=== PATIENT | female | born 1950 | race Caucasian/White ===

== ENCOUNTER 2017-10-22 08:49 | Emergency (ER) | payer MEDICARE, OTHER ==
[2017-10-22 09:52] VITALS: BP 111/51
[2017-10-22] MEDS ORDERED: Ondansetron 4 MG/2 ML SDV IV ONE (09:54)
[2017-10-22] MEDS ORDERED: Sodium Chloride 0.9% 10 ML Syringe FLUSH PRN (09:54)
[2017-10-22] MEDS ORDERED: fentaNYL 100 MCG/2 ML SDV IVPUSH ONE (09:54)
--- NOTE | 2017-10-22 11:38 | EDM.PDOC ---
Scribed by Triny Mo 10/22/17 1138 for Zhang Tovar MD ED HPI GENERAL MEDICAL PROBLEM - General Chief Complaint: Upper Extremity Injury/Pain Stated Complaint: SHOULDER Time Seen by Provider: 10/22/17 09:35 Source of Information: Reports: Patient, RN, RN Notes Reviewed History Limitations: Reports: No Limitations - History of Present Illness INITIAL COMMENTS - FREE TEXT/NARRATIVE: Patient presents to ER with severe pain in left arm and shoulder. She let the dogs out and on the way back to the house she tripped on a hose and fell on her left arm and shoulder. She did not hit her head. No loss of consciousness. Onset: Today Duration: Getting Worse Location: Reports: Upper Extremity, Left Quality: Reports: Ache Severity: Severe Improves with: Reports: None Worsens with: Reports: None Associated Symptoms: Reports: No Other Symptoms Left Upper Arm Pain Score (Numeric/FACES): 8 - Related Data Allergies Allergy/AdvReac Type Severity Reaction Status Date / Time codeine Allergy Pain Verified 07/10/17 10:11 Home Meds: Home Meds Aspirin [Halfprin] 81 mg PO DAILY 09/07/16 [History] Escitalopram [Lexapro] 10 mg PO DAILY 09/07/16 [History] Levothyroxine 125 mcg PO DAILY 09/07/16 [History] Loratadine 10 mg PO DAILY PRN 09/07/16 [History] Simvastatin [Zocor] 20 mg PO DAILY 09/07/16 [History] Triamterene/Hydrochlorothiazid [Triamterene-HCTZ 37.5-25 MG] 1 tab PO DAILYBH [History] Losartan [Cozaar] 50 mg PO DAILY 10/19/16 [History] Past Medical History HEENT History: Reports: Otitis Media, Other (See Below) Other HEENT History: PT STATES HAD EAR BLEEDING LAST SUMMER Cardiovascular History: Reports: High Cholesterol, Hypertension Gastrointestinal History: Reports: None Genitourinary History: Reports: [employer] History: Reports: Musculoskeletal History: Reports: Arthritis, Back Pain, Chronic, Fibromyalgia, Other (See Below) Other Musculoskeletal History: TENDONITIS Psychiatric History: Reports: Anxiety, Depression Endocrine/Metabolic History: Reports: Osteopenia Dermatologic History: Reports: Other (See Below) Other Dermatologic History: "BREAKS OUT FROM SUN" - Infectious Disease History Infectious Disease History: Reports: Chicken Pox, Measles, Mumps, Shingles - Past Surgical History HEENT Surgical History: Reports: None Cardiovascular Surgical History: Reports: None GI Surgical History: Reports: Cholecystectomy Female Surgical History: Reports: Hysterectomy, Lithotripsy/ESWL, Other (See Below) Other Female Surgeries/Procedures: PT STATES HAD "BLADDER REPAIR" Endocrine Surgical History: Reports: None Musculoskeletal Surgical History: Reports: None Dermatological Surgical History: Reports: None Social & Family History - Family History Family Medical History: Noncontributory - Caffeine Use Caffeine Use: Reports: Coffee - Living Situation & Occupation Living situation: Reports: , with Spouse Occupation: Retired Review of Systems - Review of Systems Review Of Systems: ROS reveals no pertinent complaints other than HPI. ED EXAM, GENERAL - Physical Exam Exam: See Below Exam Limited By: No Limitations General Appearance: Alert, WD/WN, No Apparent Distress, Obese Eye Exam: Bilateral Eye: EOMI, Normal Inspection, PERRL Ears: Normal External Exam, Hearing Grossly Normal Nose: Normal Inspection, Normal Mucosa, No Blood Throat/Mouth: Normal Inspection, Normal Lips, Normal Oropharynx, Normal Voice, No Airway Compromise Head: Atraumatic, Normocephalic Neck: Normal Inspection, Supple, Non-Tender, Full Range of Motion Respiratory/Chest: No Respiratory Distress, Lungs Clear, Normal Breath Sounds, No Accessory Muscle Use, Chest Non-Tender Cardiovascular: Normal Peripheral Pulses, Regular Rate, Rhythm, No Edema GI/Abdominal: Normal Bowel Sounds, Soft, No Distention Back Exam: Normal Inspection Extremities: Normal Capillary Refill, Limited Range of Motion (left shoulder tender to palpation, and severely painful with any attempted ROM). No: Joint Swelling Neurological: Alert, Oriented, CN II-XII Intact, Normal Cognition, Normal Gait, No Motor/Sensory Deficits Psychiatric: Normal Mood Skin Exam: Warm, Dry, Intact, Normal Color, No Rash Course - Vital Signs Last Recorded V/S: Last Vital Signs Temp 37.1 C 10/22/17 09:39 Pulse 70 10/22/17 09:39 Resp 20 10/22/17 09:39 BP 111/51 L 10/22/17 09:39 Pulse Ox 100 10/22/17 09:39 - Orders/Labs/Meds Orders: Active Orders 24 hr Category Date Time Status Peripheral IV Care [RC] . DIRECTED Care 10/22/17 09:55 Active Head wo Cont [CT] Stat Exams 10/22/17 09:55 Taken Humerus Lt [CR] Stat Exams 10/22/17 09:56 Taken Shoulder Comp Rt [CR] Stat Exams 10/22/17 09:56 Taken Sodium Chloride 0.9% [Saline Flush] Med 10/22/17 09:54 Active 10 ml FLUSH ASDIRECTED PRN DME for Discharge [COMM] Routine Oth 10/22/17 11:10 Ordered Peripheral IV Insertion Adult [OM.PC] Stat Oth 10/22/17 09:54 Ordered Medication Orders Sodium Chloride (Saline Flush) 10 ml FLUSH ASDIRECTED PRN PRN Reason: Keep Vein Open Last Admin: 10/22/17 10:19 Dose: 10 ml Meds: Medications Generic Name Dose Route Start Last Admin Trade Name Freq PRN Reason Stop Dose Admin Sodium Chloride 10 ml 10/22/17 09:54 10/22/17 10:19 Saline Flush FLUSH 10 ml ASDIRECTED PRN Administration Keep Vein Open Discontinued Medications Generic Name Dose Route Start Last Admin Trade Name Freq PRN Reason Stop Dose Admin Fentanyl 50 mcg 10/22/17 09:54 10/22/17 10:19 Sublimaze IVPUSH 10/22/17 09:55 50 mcg ONETIME ONE Administration Ondansetron HCl 4 mg 10/22/17 09:54 10/22/17 10:17 Zofran IV 10/22/17 09:55 4 mg ONETIME ONE Administration - Radiology Interpretation Free Text/Narrative:: Left humerus and shoulder x-ray: proximal humeral neck fracture. See rad report. CT head: No acute intracranial hemorrhage. See rad report. - Re-Assessments/Exams Free Text/Narrative Re-Assessment/Exam: 10/22/17 11:37 Dr. Sanford was consulted via [facility] [facility]. He advises to place pt in a hanging sling and have her f/u in orthopedic clinic this week. Departure - Departure Time of Disposition: 11:28 Disposition: Home, Self-Care 01 Condition: Fair Clinical Impression: Closed fracture of neck of left humerus, Fall at home, Minor closed head injury , Abrasion of left knee - Discharge Information Instructions: Humerus Fracture Treated With Immobilization, How to Use a Sling Forms: ED Department Discharge Additional Instructions: RX: Hydrocodone/APAP 5mg/325mg. *DO NOT DRIVE WHILE UNDER THE INFLUENCE OF THIS MEDICATION. Use stool softener if prone to constipation. Keep left arm in the hanging sling. Call [phone] tomorrow morning to schedule and orthopedic appointment with Dr. Sanford or one of his associates [facility] in [place]. - My Orders Last 24 Hours: My Active Orders 10/22/17 09:54 Sodium Chloride 0.9% [Saline Flush] 10 ml FLUSH ASDIRECTED PRN Peripheral IV Insertion Adult [OM.PC] Stat 10/22/17 09:55 Peripheral IV Care [RC] . DIRECTED Head wo Cont [CT] Stat 10/22/17 09:56 Humerus Lt [CR] Stat Shoulder Comp Rt [CR] Stat 10/22/17 11:10 DME for Discharge [COMM] Routine - Assessment/Plan Last 24 Hours: My Active Orders 10/22/17 09:54 Sodium Chloride 0.9% [Saline Flush] 10 ml FLUSH ASDIRECTED PRN Peripheral IV Insertion Adult [OM.PC] Stat 10/22/17 09:55 Peripheral IV Care [RC] . DIRECTED Head wo Cont [CT] Stat 10/22/17 09:56 Humerus Lt [CR] Stat Shoulder Comp Rt [CR] Stat 10/22/17 11:10 DME for Discharge [COMM] Routine I have read and agree with the documentation that has been completed regarding this visit. By signing this record, I attest that the documentation was completed in my physical presence and is an accurate record of the encounter.
== END 2017-10-22 11:45 | disposition home or self-care (01) ==
LOC: DL.ED 08:49
DX: S42.292A Other displaced fracture of upper end of left humerus, initial encounter for closed fracture (principal); S09.90XA Unspecified injury of head, initial encounter; S80.212A Abrasion, left knee, initial encounter; E78.00 Pure hypercholesterolemia, unspecified; I10 Essential (primary) hypertension; F41.9 Anxiety disorder, unspecified; F32.9 Major depressive disorder, single episode, unspecified; W18.30XA Fall on same level, unspecified, initial encounter; Z88.5 Allergy status to narcotic agent; Z79.899 Other long term (current) drug therapy; Z79.82 Long term (current) use of aspirin; Y92.009 Unspecified place in unspecified non-institutional (private) residence as the place of occurrence of the external cause
CPT/HCPCS: 70450; 73030; 73060; 96374; 96375; 99284; J2405; J3010; J7050

== ENCOUNTER 2018-07-04 10:18 | Day surgery (SDC) | payer MEDICARE, OTHER ==
[~2018-07-04 10:18] MED LIST: Moxifloxacin 0.5% Ophth Soln 3 ML Bottle EYERT ONE
[2018-07-04] MEDS ORDERED: Dexamethasone 4 MG/ML SDV IV ONE (10:19)
[2018-07-04] MEDS ORDERED: Midazolam 1 MG/ML 2 ML SDV IV ONE (10:19)
[2018-07-04] MEDS ORDERED: Phenylephrine 10% Ophth Soln 5 ML Bot EYERT PRN (10:30)
[2018-07-04] MEDS ORDERED: Acetaminophen 325 MG Tab PO PRN (10:30)
[2018-07-04] MEDS ORDERED: Sodium Chloride 0.9% 10 ML Syringe FLUSH PRN (10:30)
[2018-07-04] MEDS ORDERED: Povidone-Iodine 5% Sterile Ophth Soln 30 ML Bottle EYERT ONE ×2 (10:30→11:19)
[2018-07-04] MEDS ORDERED: Proparacaine 0.5% Ophth Soln 15 ML Bottle EYERT ONE (10:30)
[2018-07-04] MEDS ORDERED: Cataract Ophth Solution EYERT ONE (10:30)
[2018-07-04] MEDS ORDERED: Ondansetron 4 MG/2 ML SDV IVPUSH PRN (10:30)
[2018-07-04] MEDS ORDERED: Phenylephrine 10% Ophth Soln 5 ML Bot EYERT ONE (10:30)
[2018-07-04] MEDS ORDERED: Timolol Maleate 0.5% Ophth Soln 5 ML Bottle EYERT ONE (10:30)
[2018-07-04] MEDS ORDERED: Lidocaine 1% 30 ML SDV ONE (11:18)
[2018-07-04] MEDS ORDERED: Apraclonidine 0.5% Ophth Soln 5 ML Bot EYERT ONE (11:19)
[2018-07-04] MEDS ORDERED: Tetracaine HCl/PF 0.5% 4 ML Bottle EYERT ONE (11:19)
[2018-07-04] MEDS ORDERED: Diclofenac Sodium 0.1% Ophth Soln 5 ML Bottle EYERT ONE (11:19)
[2018-07-04] MEDS ORDERED: Dexamethasone/Neomycin/Polymyxin B Ophth Oint 3.5 GM Tube EYERT ONE (11:19)
[2018-07-04] MEDS ORDERED: Vancomycin 500 MG SDV EYERT ONE (11:20)
[2018-07-04] MEDS ORDERED: Chondroitin Sulfate/Hyaluronate Sodium Ophth Inj 0.75 ML Syringe EYERT ONE (11:20)
[2018-07-04] MEDS ORDERED: Balanced Salt Solution Ophth Irrig 500 ML Bottle IOCULAR ONE (11:20)
[2018-07-04 14:20] VITALS: BP 119/61
--- NOTE | 2018-07-04 17:55 | OR ---
DATE: 07/04/2018 PREOPERATIVE DIAGNOSIS: Visually significant mixed cataract, right eye. POSTOPERATIVE DIAGNOSIS: Visually significant mixed cataract, right eye. PROCEDURE: Extracapsular cataract extraction with intraocular lens implant, right eye. ANESTHESIA: Topical/local MAC. COMPLICATIONS: None. INDICATION: The patient was seen in the clinic. She has complained of a slow progressive gradual decrease in vision. She notices primarily her distance vision. She also has difficulty with bright lights and glare. Her examination reveals visually significant mixed cataract. I explained options and offered cataract surgery and I explained risks including, but not limited to, infection, retinal detachment, loss of vision, need for additional surgery amongst others. We discussed implant options. She has requested surgery with a monofocal implant. She voiced an understanding with respect to risks and wished to proceed. She is comfortable wearing spectacle correction following surgery if necessary. OPERATIVE DESCRIPTION: After informed consent was obtained and the risks, benefits, and alternatives were explained, the patient was brought to the operative suite and topical anesthesia was administered. The patient was then prepped and draped in the sterile fashion and attention was placed on the right eye. A sterile lid speculum was placed into the right eye to allow operative exposure. A full-thickness paracentesis was made in the temporal portion of the operative eye. Preservative-free lidocaine 0.1 mL was injected into the anterior chamber followed by viscoelastic. A full-thickness corneal incision was then made into the anterior chamber. A bent needle cystotome was used to create a small duane in the anterior capsule. The capsulorrhexis forceps was then used to create a 360-degree curvilinear capsulorrhexis. The nucleus was then removed using a phacoemulsification handpiece and the remaining cortical material was then removed with irrigation and aspiration handpiece. Following removal of the cortical material, the capsular bag was then inspected and noted to be free of any holes or tears. Viscoelastic was then injected into the capsular bag and the intraocular lens was inserted into the capsular bag. The viscoelastic material was then removed from both the anterior and posterior chambers and from behind the IOL. The lens and capsular bag were then reinspected. The IOL was well centered and the capsular bag intact. The wound and paracentesis sites were inspected and hydrated with balanced saline solution. Both were found to be self-sealing. The intraocular pressure was assessed digitally and found to be within normal range. A good red reflex was noted at the completion of the procedure. No complications occurred during the operation. At the completion of the procedure, Maxitrol, Voltaren, and Iopidine drops were placed into the operative eye. A sterile eye shield was placed over the operative eye and the patient was transported to the postoperative recovery area having tolerated the procedure well. Postoperative instructions were given along with a postoperative appointment. The patient was advised to call with any questions or concerns. [facility] /[id number]
== END 2018-07-04 12:30 | disposition home or self-care (01) ==
LOC: DL.SDS 10:18
PROVIDERS: ATTEND Ophthalmology
DX: H26.8 Other specified cataract (principal); E03.9 Hypothyroidism, unspecified; E78.00 Pure hypercholesterolemia, unspecified; E78.5 Hyperlipidemia, unspecified; I10 Essential (primary) hypertension; F41.9 Anxiety disorder, unspecified; M81.0 Age-related osteoporosis without current pathological fracture; M19.90 Unspecified osteoarthritis, unspecified site; Z79.82 Long term (current) use of aspirin; Z79.891 Long term (current) use of opiate analgesic; Z79.899 Other long term (current) drug therapy; Z88.5 Allergy status to narcotic agent; Z88.8 Allergy status to other drugs, medicaments and biological substances; Z87.891 Personal history of nicotine dependence
CPT/HCPCS: 00142; A9270-GY; C1780; J1100; J2001; J2250; J3370

== ENCOUNTER 2018-07-25 06:05 | Day surgery (SDC) | payer MEDICARE, OTHER ==
[2018-07-25] MEDS ORDERED: Midazolam 1 MG/ML 2 ML SDV IV ONE (06:06)
[2018-07-25] MEDS ORDERED: Sodium Chloride 0.9% 10 ML Syringe IV ONE (06:06)
[2018-07-25] MEDS ORDERED: Dexamethasone 4 MG/ML SDV IV ONE (06:06)
[2018-07-25] MEDS ORDERED: Povidone-Iodine 5% Sterile Ophth Soln 30 ML Bottle EYELF ONE ×2 (06:30→08:04)
[2018-07-25] MEDS ORDERED: Ondansetron 4 MG/2 ML SDV IVPUSH PRN (06:30)
[2018-07-25] MEDS ORDERED: Proparacaine 0.5% Ophth Soln 15 ML Bottle EYELF ONE (06:30)
[2018-07-25] MEDS ORDERED: Phenylephrine 10% Ophth Soln 5 ML Bot EYELF PRN (06:30)
[2018-07-25] MEDS ORDERED: Timolol Maleate 0.5% Ophth Soln 5 ML Bottle EYELF ONE (06:30)
[2018-07-25] MEDS ORDERED: Cataract Ophth Solution EYELF ONE (06:30)
[2018-07-25] MEDS ORDERED: Phenylephrine 10% Ophth Soln 5 ML Bot EYELF ONE (06:30)
[2018-07-25] MEDS ORDERED: Acetaminophen 325 MG Tab PO PRN (06:30)
[2018-07-25] MEDS ORDERED: Sodium Chloride 0.9% 10 ML Syringe FLUSH PRN (06:30)
[2018-07-25] MEDS ORDERED: Moxifloxacin 0.5% Ophth Soln 3 ML Bottle EYELF ONE (06:30)
[2018-07-25] MEDS ORDERED: Tetracaine HCl/PF 0.5% 4 ML Bottle EYELF ONE (08:03)
[2018-07-25] MEDS ORDERED: Lidocaine 1% 30 ML SDV ONE (08:03)
[2018-07-25] MEDS ORDERED: Apraclonidine 0.5% Ophth Soln 5 ML Bot EYELF ONE (08:04)
[2018-07-25] MEDS ORDERED: Diclofenac Sodium 0.1% Ophth Soln 5 ML Bottle EYELF ONE (08:05)
[2018-07-25] MEDS ORDERED: Dexamethasone/Neomycin/Polymyxin B Ophth Oint 3.5 GM Tube EYELF ONE (08:05)
[2018-07-25] MEDS ORDERED: Chondroitin Sulfate/Hyaluronate Sodium Ophth Inj 0.75 ML Syringe EYELF ONE (08:06)
[2018-07-25] MEDS ORDERED: Vancomycin 500 MG SDV EYELF ONE (08:06)
[2018-07-25] MEDS ORDERED: Balanced Salt Solution Ophth Irrig 500 ML Bottle IOCULAR ONE (08:06)
[2018-07-25 09:16] VITALS: BP 141/60; PULSE 96
--- NOTE | 2018-07-25 11:29 | OR ---
DATE: PREOPERATIVE DIAGNOSIS: Visually significant mixed cataract, left eye. POSTOPERATIVE DIAGNOSIS: Visually significant mixed cataract, left eye. PROCEDURE: Extracapsular cataract extraction with intraocular lens implant, left eye. ANESTHESIA: Topical/local MAC. COMPLICATIONS: None. INDICATION: Visually significant symptomatic cataract. The patient was seen in the clinic with complaints of blurred vision and decreased vision over the last several months. Also complains of difficulty with bright lights and halos. Examination reveals visually significant mixed cataract. I explained options, offered surgery, and explained risks preoperatively including, but not limited to, infection, retinal detachment, loss of vision, and need for additional surgery amongst others. We discussed implant options. She has requested surgery with a monofocal implant. OPERATIVE DESCRIPTION: After informed consent was obtained and the risks, benefits, and alternatives were explained, the patient was brought to the operative suite and topical anesthesia was administered. The patient was then prepped and draped in the sterile fashion and attention was placed on the left eye. A sterile lid speculum was placed into the left eye to allow operative exposure. A full-thickness paracentesis was made in the temporal portion of the operative eye. Preservative-free lidocaine 0.1 mL was injected into the anterior chamber followed by viscoelastic. A full-thickness corneal incision was then made into the anterior chamber. A bent needle cystotome was used to create a small duane in the anterior capsule. The capsulorrhexis forceps was then used to create a 360-degree curvilinear capsulorrhexis. The nucleus was then removed using a phacoemulsification handpiece and the remaining cortical material was then removed with irrigation and aspiration handpiece. Following removal of the cortical material, the capsular bag was then inspected and noted to be free of any holes or tears. Viscoelastic was then injected into the capsular bag and the intraocular lens was inserted into the capsular bag. The viscoelastic material was then removed from both the anterior and posterior chambers and from behind the IOL. The lens and capsular bag were then reinspected. The IOL was well centered and the capsular bag intact. The wound and paracentesis sites were inspected and hydrated with balanced saline solution. Both were found to be self-sealing. The intraocular pressure was assessed digitally and found to be within normal range. A good red reflex was noted at the completion of the procedure. No complications occurred during the operation. At the completion of the procedure, Maxitrol, Voltaren, and Iopidine drops were placed into the operative eye. A sterile eye shield was placed over the operative eye and the patient was transported to the postoperative recovery area having tolerated the procedure well. Postoperative instructions were given along with a postoperative appointment. The patient was advised to call with any questions or concerns. [facility] /[id number]
== END 2018-07-25 09:14 | disposition home or self-care (01) ==
LOC: DL.SDS 06:05
PROVIDERS: ATTEND Ophthalmology
DX: H26.8 Other specified cataract (principal); E78.5 Hyperlipidemia, unspecified; E03.9 Hypothyroidism, unspecified; I10 Essential (primary) hypertension; F41.9 Anxiety disorder, unspecified; E66.01 Morbid (severe) obesity due to excess calories; Z68.41 Body mass index [BMI] 40.0-44.9, adult; Z88.5 Allergy status to narcotic agent; Z88.8 Allergy status to other drugs, medicaments and biological substances; Z87.891 Personal history of nicotine dependence; Z96.1 Presence of intraocular lens
CPT/HCPCS: 00142; 66984; A9270; C1780; J1100; J2001; J2250; J3370; V2632